=== PATIENT | female | born 1990 | race Caucasian/White ===

== ENCOUNTER → 2020-12-07 | Outpatient (CLI) | payer SELFPAY ==
--- NOTE | 2020-12-07 21:34 | Diagnostic Imaging Report ---
HISTORY: Fall 2-1/2 weeks ago, pain in the right shoulder. COMPARISON: None FINDINGS: Two views of the right shoulder demonstrate no acute fracture or dislocation. Alignment appears normal and joint spaces are preserved. IMPRESSION: 1. No acute osseous abnormality is seen in the right shoulder. Dictated by: Dictated on workstation # [id number]
== END ==
LOC: RAD 19:30
PROVIDERS: ATTEND Nurse Practitioner Family
DX: M25.511 Pain in right shoulder (principal); W19.XXXA Unspecified fall, initial encounter
CPT/HCPCS: 73030

== ENCOUNTER → 2022-05-16 | Outpatient (CLI) | payer OTHER ==
[~2022-05-16] MED LIST: CATHETER FLUSH 10 ML SYR IVP PRN
--- NOTE | 2022-05-16 09:08 | Diagnostic Imaging Report ---
INDICATION: Right upper quadrant abdominal pain. FINDINGS: The patient was administered 5.38 mCi of Tc 99m Choletec and sequential imaging was performed over the right upper abdomen. There is progressive, homogeneous accumulation of radiotracer within the liver parenchyma. There is filling of the bile ducts and subsequent filling of the gallbladder. There is progressive clearance of activity from the liver parenchyma and accumulation of radiotracer within loops of small bowel. The patient was then administered a fatty meal, utilizing 8 ounces of Ensure. The gallbladder ejection fraction was calculated to be approximately 74%. (Normal values post fatty meal stimulation are 33% or greater.) IMPRESSION: 1. Hepatobiliary scan demonstrates a patent biliary tree. 2. Normal gallbladder ejection fraction of approximately 74%. Dictated by: Dictated on workstation # [id number]
== END ==
LOC: CARD 07:00
PROVIDERS: ATTEND Nurse Practitioner Family
DX: R10.11 Right upper quadrant pain (principal)
CPT/HCPCS: 78227; A9537